=== PATIENT | female | born 1975 | race Caucasian/White ===

== ENCOUNTER 2019-06-13 09:26 | Emergency (ER) | payer BC ==
[~2019-06-13] VITALS: Ht 154.9 cm; Wt 77.3 kg
[2019-06-13 09:32] VITALS: Ht 154.9 cm; Wt 77.3 kg
[2019-06-13] MEDS ORDERED: CATAPRES0.1 MG PO (09:33)
[2019-06-13 10:01] LABS: APPEARANCE CLEAR (CLEAR); BILIRUBIN NEGATIVE (NEGATIVE); COLOR YELLOW (YELLOW); GLUCOSE NEGATIVE (NEGATIVE); KETONE NEGATIVE (NEGATIVE); NITRITE NEGATIVE (NEGATIVE); PROTEIN NEGATIVE (NEGATIVE); UROBILINOGEN NORMAL (NORMAL)
[2019-06-13 10:16] LABS: BASOPHILS 0.2 % (0-2); EOSINOPHILS 0.9 % (0-7); HEMATOCRIT 40.9 % (36.0-48.0); IMMATURE GRANULOCYTES 0.1 % (0-5); LYMPHOCYTES 36.4 % (15-50); MCH 32.9 pg (26.0-34.0); MCHC 34.2 g/dL (31.0-37.0); MCV 96.2 fL (80.0-100.0); MEAN PLATELET VOLUME 11.9 fL (7.4-10.4); MONOCYTES 3.8 % (2-11); NEUTROPHILS 58.6 % (40-80); PLATELET COUNT 152 10x3/uL (130-400); RBC 4.25 10x6/uL (4.00-5.40); RDW 12.9 % (11.5-14.5); WBC 8.5 10x3/uL (4.8-10.8)
[2019-06-13 10:31] LABS: ALBUMIN 3.9 g/dL (3.4-5.0); ALKALINE PHOSPHATASE 71 U/L (46-116); ALT (SGPT) 75 U/L (10-68); BILIRUBIN - TOTAL 0.48 mg/dL (0.2-1.3); PROTEIN - SERUM 7.7 g/dL (6.4-8.2)
[2019-06-13 10:40] LABS: CALC OSMOLALITY 283 mosm/kg (275-300); CALCIUM 9.1 mg/dL (8.5-10.1); CARBON DIOXIDE 27.3 mmol/L (21.0-32.0); CHLORIDE - SERUM 104 mmol/L (98-107); CREATININE - SERUM 0.8 mg/dL (0.6-1.3); GLUCOSE 103 mg/dL (74-106); POTASSIUM - SERUM 4.2 mmol/L (3.5-5.1); SODIUM 142 mmol/L (136-145); UREA NITROGEN 14 mg/dL (7-18); eGFR NON AFRICAN AMERICAN 84 mL/min (90-120)
[2019-06-13] MEDS ORDERED: LISINOPRIL5 MG PO (11:27)
[2019-06-13 11:59] VITALS: BP 139/104
== END 2019-06-13 11:59 | disposition home or self-care (01) ==
LOC: D.ER 09:26
PROVIDERS: Family Medicine
DX: E16.2 Hypoglycemia, unspecified (principal); I10 Essential (primary) hypertension; Z72.0 Tobacco use